=== PATIENT | male | born 1950 | race African-American/Black ===

== ENCOUNTER 2020-05-21 18:45 | Emergency (ER) | payer OTHER ==
[~2020-05-21] VITALS: Ht 180.3 cm; Wt 92.5 kg
[2020-05-21 19:17] VITALS: BP_SYST 160
[2020-05-21] MEDS ORDERED: methylPREDNISolone SOD SUCC/PF 62.5 MG/ML VIAL IVP ONE (20:30)
[2020-05-21] MEDS ORDERED: DIPHENHYDRAMINE INJ 50 MG/ML VIAL IVP ONE (20:30)
[2020-05-21] MEDS ORDERED: FAMOTIDINE PF 20 MG/2 ML VIAL IVP ONE (20:30)
[2020-05-21] MEDS ORDERED: methylPREDNISolone SOD SUCC/PF 62.5 MG/ML VIAL ONE (20:43)
[2020-05-21] MEDS ORDERED: MED4 PO (22:49)
[2020-05-21] MEDS ORDERED: FAMO-132 PO (22:49)
[2020-05-21] MEDS ORDERED: DIPH25CA83 PO (22:49)
[2020-05-21 23:38] VITALS: BP_SYST 140
== END 2020-05-21 23:38 | disposition home or self-care (01) ==
LOC: SED 18:45
DX: T78.3XXA Angioneurotic edema, initial encounter (principal); X58.XXXA Exposure to other specified factors, initial encounter
CPT/HCPCS: 96374; 96375; 99284; J1200; J2930; J3490